=== PATIENT | male | born 1995 | race African-American/Black ===

== ENCOUNTER 2019-04-12 20:30 | Emergency (ER) | payer SELFPAY ==
[~2019-04-12] VITALS: Ht 185.4 cm; Wt 75.0 kg
[2019-04-12 21:17] VITALS: BP 141/57
[2019-04-12] MEDS ORDERED: DiphenhydrAMINE HCL 25 MG CAPSULE PO ONE (21:30)
[2019-04-12] MEDS ORDERED: PredniSONE 20 MG TABLET PO ONE (21:30)
== END 2019-04-12 21:58 | disposition home or self-care (01) ==
LOC: EMS 20:32
DX: L50.9 Urticaria, unspecified (principal); F12.90 Cannabis use, unspecified, uncomplicated
CPT/HCPCS: 99283; J7512